=== PATIENT | male | born 1995 | race African-American/Black ===

== ENCOUNTER 2021-01-09 02:54 | Emergency (ER) | payer OTHER ==
[~2021-01-09] VITALS: Ht 188 cm; Wt 83.9 kg
[2021-01-09 03:34] VITALS: BP_SYST 126
[2021-01-09] MEDS ORDERED: LIDOCAINE/EPI 1% 1:100000 20 ML VIAL INJ ONE (04:30)
[2021-01-09 05:59] VITALS: BP_SYST 128
== END 2021-01-09 06:01 | disposition home or self-care (01) ==
LOC: SED 02:54
DX: S01.81XA Laceration without foreign body of other part of head, initial encounter (principal); S09.90XA Unspecified injury of head, initial encounter; Y04.0XXA Assault by unarmed brawl or fight, initial encounter; Y93.89 Activity, other specified; Y92.89 Other specified places as the place of occurrence of the external cause; Y99.8 Other external cause status
CPT/HCPCS: 99282